=== PATIENT | female | born 1985 | race African-American/Black ===

== ENCOUNTER 2018-02-12 16:38 | Emergency (ER) | payer OTHER ==
[2018-02-12 17:26] LABS: URINE HCG POC HCG NEGATIVE (Negative)
[2018-02-12 17:26] LABS: BILIRUBIN,URINE NEGATIVE (NEG); CLARITY,URINE CLOUDY; COLOR,URINE YELLOW; GLUCOSE,URINE NEGATIVE (NEG); NITRITE,URINE NEGATIVE (NEG); PH,URINE 6.5; PROTEIN,URINE NEGATIVE (NEG-TRACE)
[2018-02-12 17:37] LABS: BACTERIA,URINE MANY /HPF (0-FEW); RBC,URINE 0 /HPF (0-2); SQUAMOUS EPITHELIAL CELL,UR MANY /LPF; WBC,URINE 0 /HPF (0-4)
[2018-02-12] MEDS: CYCLOBENZAPRINE 10 MG TABLET. PO (17:57)
[2018-02-12] MEDS: NAPROXEN 500 MG TABLET PO (17:57)
== END 2018-02-12 19:30 | disposition home or self-care (01) ==
LOC: ER 19:30
DX: S39.012A Strain of muscle, fascia and tendon of lower back, initial encounter (principal); S16.1XXA Strain of muscle, fascia and tendon at neck level, initial encounter; V43.62XA Car passenger injured in collision with other type car in traffic accident, initial encounter; Y93.89 Activity, other specified; Y92.488 Other paved roadways as the place of occurrence of the external cause; Y99.8 Other external cause status
CPT/HCPCS: 72100; 81001; 81025; 99285-25

== ENCOUNTER 2021-05-13 19:54 | Emergency (ER) | payer SELFPAY ==
[~2021-05-13] VITALS: Ht 170.2 cm; Wt 70.0 kg
[~2021-05-13 19:54] MED LIST: CYCL10TA2 PO; NAPR500T8 PO
[2021-05-13] MEDS ORDERED: IV NORMAL SALINE 1000ML BAG 1,000 ML IV ONE (20:15)
[2021-05-13 20:19] LABS: BASO # 0.1 x10^3/uL (0.0-0.2); BASO % 1 % (0-3); EOS % 0 % (0-3); HEMATOCRIT 44.2 % (36.0-47.0); HEMOGLOBIN 15.2 g/dL (12.0-15.5); LYMPH # 0.9 x10^3/uL (1.0-4.8); LYMPH % 8 % (24-48); MEAN CORPUSCULAR HEMOGLOBIN 32 pg (25-35); MEAN CORPUSCULAR HGB CONC 35 g/dL (31-37); MEAN CORPUSCULAR VOLUME 93 fL (79-100); MONO # 0.6 x10^3/uL (0.0-1.1); MONO % 5 % (0-9); NEUT # 10.5 x10^3/uL (1.8-7.7); NEUT % 87 % (31-73); PLATELET COUNT 372 x10^3/uL (140-400); RED BLOOD COUNT 4.77 x10^6/uL (3.50-5.40); RED CELL DISTRIBUTION WIDTH 12.9 % (11.5-14.5)
[2021-05-13 20:40] LABS: CALCIUM 9.1 mg/dL (8.5-10.1); CREATININE 0.9 mg/dL (0.6-1.0); GFR 86.2; POTASSIUM 3.8 mmol/L (3.5-5.1)
[2021-05-13] MEDS ORDERED: HALOPERIDOL LACTATE 5 MG/ML VIAL. IVP ONE ×2 (20:45)
[2021-05-13 20:46] LABS: ALBUMIN 4.4 g/dL (3.4-5.0); MAGNESIUM 2.1 mg/dL (1.8-2.4); TOTAL BILIRUBIN 0.3 mg/dL (0.2-1.0); TOTAL PROTEIN 8.8 g/dL (6.4-8.2)
--- NOTE | 2021-05-13 21:45 | PHYS DOC ---
Past Medical History Past Medical History: No Pertinent History Past Surgical History: No Surgical History Smoking Status: Never Smoker Alcohol Use: None Drug Use: None General Adult EDM: Chief Complaint: ABDOMINAL PAIN HPI: HPI: 36-year-old female with a history of everyday marijuana use presents complaining of nausea vomiting throughout the last 24 hours. She also admits to heavy alcohol use last night. Admits to abdominal soreness from vomiting. The patient denies diarrhea fever, chills, chest pain, shortness of breath,urinary symptoms, cough, recent trauma, or any other complaints. Does not take hormones/medications, no cancer treatments or surgery. Review of Systems: Review of Systems: ROS is otherwise negative except for what was mentioned in HPI Heart Score: C/O Chest Pain: No Current Medications: Current Medications Medications (Trade) Dose Ordered Sig/Rivka Start Time Stop Time Status Last Admin Dose Admin Haloperidol Lactate (Haldol Inj) 2.5 mg 1X ONCE 05/13/21 20:45 05/13/21 20:46 DC Sodium Chloride 1,000 ml @ 1,000 mls/hr 1X ONCE 05/13/21 20:15 05/13/21 21:14 DC 05/13/21 20:15 1,000 MLS/HR Allergies: Allergies: Allergies Coded Allergies Type Severity Reaction Last Updated Verified No Known Drug Allergies 02/12/18 No Physical Exam: PE: Constitutional: Moderate distress, non-toxic appearance. HENT: Atraumatic, bilateral external ears normal, nose normal. Eyes: PERRLA, EOMI, conjunctiva normal, no discharge. Neck: Normal range of motion, supple, no stridor. Cardiovascular: Heart rate regular rhythm. 2+ radial pulses Lungs & Thorax: No respiratory distress, symmetrical expansion. Bilateral breath sounds clear to auscultation Abdomen: Soft, no tenderness Skin: Warm, dry. Extremities: No tenderness, no cyanosis, ROM intact, no edema. Neurologic: Alert and oriented X 3, normal motor function, normal sensory function, no focal deficits noted. Non ataxic gait. GCS 15. Psychologic: Affect normal, judgment normal, mood normal. Current Patient Data: Labs: Laboratory Tests Test 05/13/21 20:00 05/13/21 21:45 05/13/21 22:07 White Blood Count 12.0 x10^3/uL (4.0-11.0) Red Blood Count 4.77 x10^6/uL (3.50-5.40) Hemoglobin 15.2 g/dL (12.0-15.5) Hematocrit 44.2 % (36.0-47.0) Mean Corpuscular Volume 93 fL (79-100) Mean Corpuscular Hemoglobin 32 pg (25-35) Mean Corpuscular Hemoglobin Concent 35 g/dL (31-37) Red Cell Distribution Width 12.9 % (11.5-14.5) Platelet Count 372 x10^3/uL (140-400) Neutrophils (%) (Auto) 87 % (31-73) Lymphocytes (%) (Auto) 8 % (24-48) Monocytes (%) (Auto) 5 % (0-9) Eosinophils (%) (Auto) 0 % (0-3) Basophils (%) (Auto) 1 % (0-3) Neutrophils # (Auto) 10.5 x10^3/uL (1.8-7.7) Lymphocytes # (Auto) 0.9 x10^3/uL (1.0-4.8) Monocytes # (Auto) 0.6 x10^3/uL (0.0-1.1) Eosinophils # (Auto) 0.0 x10^3/uL (0.0-0.7) Basophils # (Auto) 0.1 x10^3/uL (0.0-0.2) Segmented Neutrophils % 95 % (35-66) Lymphocytes % 4 % (24-48) Monocytes % 1 % (0-10) Platelet Estimate Adequate (ADEQUATE) Sodium Level 147 mmol/L (136-145) Potassium Level 3.8 mmol/L (3.5-5.1) Chloride Level 106 mmol/L (98-107) Carbon Dioxide Level 27 mmol/L (21-32) Anion Gap 14 (6-14) Blood Urea Nitrogen 10 mg/dL (7-20) Creatinine 0.9 mg/dL (0.6-1.0) Estimated GFR (Cockcroft-Gault) 86.2 BUN/Creatinine Ratio 11 (6-20) Glucose Level 121 mg/dL (70-99) Calcium Level 9.1 mg/dL (8.5-10.1) Magnesium Level 2.1 mg/dL (1.8-2.4) Total Bilirubin 0.3 mg/dL (0.2-1.0) Aspartate Amino Transf (AST/SGOT) 10 U/L (15-37) Alanine Aminotransferase (ALT/SGPT) 21 U/L (14-59) Alkaline Phosphatase 86 U/L (46-116) Total Protein 8.8 g/dL (6.4-8.2) Albumin 4.4 g/dL (3.4-5.0) Albumin/Globulin Ratio 1.0 (1.0-1.7) Lipase 79 U/L (73-393) Urine Collection Type Unknown Urine Color Yellow Urine Clarity Clear Urine pH 7.5 (<5.0-8.0) Urine Specific [place] >=1.030 (1.000-1.030) Urine Protein 100 mg/dL (NEG-TRACE) Urine Glucose (UA) Negative mg/dL (NEG) Urine Ketones (Stick) Negative mg/dL (NEG) Urine Blood Trace (NEG) Urine Nitrite Negative (NEG) Urine Bilirubin Negative (NEG) Urine Urobilinogen Dipstick 0.2 mg/dL (0.2 mg/dL) Urine Leukocyte Esterase Trace (NEG) Urine RBC 6-10 /HPF (0-2) Urine WBC 11-20 /HPF (0-4) Urine Squamous Epithelial Cells Mod /LPF Urine Bacteria Moderate /HPF (0-FEW) Urine Mucus Marked /LPF Bedside Urine HCG, Qualitative Hcg negative (Negative) Vital Signs: Vital Signs Date Time Temp Pulse Resp B/P (MAP) Pulse Ox O2 Delivery O2 Flow Rate FiO2 05/13/21 21:27 62 18 105/57 (73) 97 Room Air 05/13/21 20:00 97.9 97.9 Course & Med Decision Making: Course & Med Decision Making Patient felt much better after Haldol, likely cannabis hyperemesis syndrome. Will discharge with Keflex for UTI My Orders - MILAGROS AHMADI DO Procedure Category Date Status Time Haloperidol Lactate PHA 05/13/21 Complete Inj (Haldol Inj) 20:45 Cbc W Autodiff LAB 05/13/21 Complete 20:11 Comprehensive LAB 05/13/21 Complete Metabolic Panel 20:11 Lipase LAB 05/13/21 Complete 20:11 Magnesium LAB 05/13/21 Complete 20:11 Ua, Cult If Indicated LAB 05/13/21 Complete 20:11 Urine Test EKATERINA 05/13/21 In Process 20:11 Haloperidol Lactate PHA 05/13/21 Complete Inj (Haldol Inj) 20:45 Iv Normal Saline PHA 05/13/21 Complete 1000ml Bag (Iv Sodium 20:15 Manual Differential LAB 05/13/21 Complete 20:00 Drugs Of Abuse Ur LAB 05/13/21 In Process 21:15 Urine Culture TANIYA 05/13/21 In Process 23:06 Departure Departure Impression: Primary Impression: Cannabinoid hyperemesis syndrome Additional Impression: UTI (urinary tract infection) Disposition: HOME / SELF CARE / HOMELESS Condition: IMPROVED Referrals: NO PCP (PCP) Patient Instructions: Nausea and Vomiting, [id number] Additional Instructions: You were seen for a urinary tract infection. Please continue to take the antibiotics as prescribed. You should return to the ED if you develop worsening pain, fever, flank pain, inability to eat or drink, or any other new or concerning symptoms. You have been given a prescription for Keflex. This medicine is an antibiotic for Urinary Tract Infection. Please take as prescribed for the full course of the prescription. Do not stop taking the medicine early if you feel better, as this could risk building antibiotic resistance and may put you at risk for a more harmful infection later. The most common side effect of antibiotics include nausea, vomiting, diarrhea and rash. Please come to be evaluated if you develop any symptoms that are concerning to you. One major adverse effect of antibiotics is the development of a diarrheal illness called c. diff colitis, if you develop an excessive amount of diarrhea or are concerned about this please return to the ER or consult a physician. Scripts Cephalexin (CEPHALEXIN) 500 Mg Tablet 1 TAB PO BID for 7 Days, #14 TAB Prov: MILAGROS AHMADI DO 05/13/21 MILAGROS AHMADI DO May 13, 2021 21:45
[2021-05-13 21:57] LABS: % LYMPHS 4 % (24-48); % MONOS 1 % (0-10); % SEGS 95 % (35-66)
[2021-05-13 21:58] LABS: PLT ESTIMATE ADEQUATE (ADEQUATE)
[2021-05-13 22:18] LABS: BILIRUBIN,URINE NEGATIVE (NEG); CLARITY,URINE CLEAR; COLOR,URINE YELLOW; NITRITE,URINE NEGATIVE (NEG); PH,URINE 7.5 (<5.0-8.0); PROTEIN,URINE 100 mg/dL (NEG-TRACE); UROBILINOGEN,URINE 0.2 mg/dL (0.2 mg/dL)
[2021-05-13 22:51] LABS: BARBITURATES NEG (NEG); BENZODIAZEPINES NEG (NEG); CANNABINOIDS POS (NEG); COCAINE POS (NEG); METHADONE NEG (NEG); OPIATES NEG (NEG); PHENCYCLIDINE NEG (NEG)
[2021-05-13 23:05] LABS: BACTERIA,URINE MODERATE /HPF (0-FEW)
[2021-05-13] MEDS ORDERED: CEPH500T PO (23:21)
[2021-05-13 23:22] LABS: AMPHETAMINE/METHAMPHETAMINE NEG (NEG)
[2021-05-13 23:24] VITALS: BP 110/60
== END 2021-05-13 23:36 | disposition home or self-care (01) ==
LOC: ER 19:54
DX: F12.188 Cannabis abuse with other cannabis-induced disorder (principal); N39.0 Urinary tract infection, site not specified
CPT/HCPCS: 36415; 80053; 80307; 81001; 81025; 83690; 83735; 85007; 85025; 87086; 96361; 96374; 99283; J1630; J7030

== ENCOUNTER 2021-12-13 12:54 | Emergency (ER) | payer SELFPAY ==
[~2021-12-13] VITALS: Ht 170.2 cm; Wt 87.5 kg
[~2021-12-13 12:54] MED LIST changes: +CEPH500T PO; +CYCL10TA19 PO; -CYCL10TA2 PO
[2021-12-13 13:27] LABS: BACTERIA,URINE FEW /HPF (0-FEW); RBC,URINE 0 /HPF (0-2)
[2021-12-13 13:50] LABS: BASO % 1 % (0-3); EOS # 0.1 x10^3/uL (0.0-0.7); EOS % 1 % (0-3); HEMATOCRIT 38.3 % (36.0-47.0); HEMOGLOBIN 13.1 g/dL (12.0-15.5); LYMPH # 1.6 x10^3/uL (1.0-4.8); LYMPH % 25 % (24-48); MEAN CORPUSCULAR HEMOGLOBIN 31 pg (25-35); MEAN CORPUSCULAR HGB CONC 34 g/dL (31-37); MEAN CORPUSCULAR VOLUME 92 fL (79-100); MONO # 0.8 x10^3/uL (0.0-1.1); MONO % 13 % (0-9); NEUT % 61 % (31-73); PLATELET COUNT 347 x10^3/uL (140-400); RED BLOOD COUNT 4.16 x10^6/uL (3.50-5.40); RED CELL DISTRIBUTION WIDTH 13.5 % (11.5-14.5); WHITE BLOOD COUNT 6.5 x10^3/uL (4.0-11.0)
[2021-12-13 14:01] LABS: CALCIUM 8.8 mg/dL (8.5-10.1); CREATININE 0.7 mg/dL (0.6-1.0); GFR 115.2; POTASSIUM 3.8 mmol/L (3.5-5.1)
[2021-12-13 14:07] LABS: ALBUMIN 3.7 g/dL (3.4-5.0); TOTAL BILIRUBIN 0.6 mg/dL (0.2-1.0); TOTAL PROTEIN 7.5 g/dL (6.4-8.2)
[2021-12-13 15:40] VITALS: BP 126/56
--- NOTE | 2021-12-13 15:59 | RAD ---
US OB <14 WKS +TV History: vaginal bleeding Comparison: None. Technique: Sonographic examination of the pelvis was performed with transabdominal and transvaginal t echnique. Findings: The uterus is normal in size and echogenicity, measuring 9.9 x 5.8 x 6.1 cm. The uterus contains a single gestational sac with normal shape with average diameter 1.23 cm correspo nding to a gestational age of 6 weeks 0 days. A pole is not yet definitively seen. There is a normal-appearing yolk sac. cardiac activi ty was attempted to be measured however not definitely identified. There is no evidence of perigestational hemorrhage. The right ovary is normal in size and echogenicity, measuring 2.0 x 1.9 x 2.9 cm, inclusive of a 1.8 cm corpus luteum. The left ovary is normal in size and echogenicity, measuring 3.7 x 1.4 x 1.9 cm. There is no evidence of adnexal mass or free fluid. Impression: 1. No evidence of acute pelvic pathology. 2. Intrauterine gestational sac with yolk sac and mean gestational sac diameter corresponding to ges tational age of 6 weeks 0 days. A pole is not yet definitively seen. Recommend close clinical f ollow-up with repeat ultrasound in 7-14 days if indicated. Electronically signed by: Taran Thorpe MD (12/13/2021 3:56 PM) [id number]
--- NOTE | 2021-12-13 16:47 | PHYS DOC ---
Past Medical History Past Medical History: No Pertinent History Past Surgical History: No Surgical History Smoking Status: Never Smoker Alcohol Use: None Drug Use: None General Adult EDM: Chief Complaint: VAGINAL BLEEDING HPI: HPI: Patient is a 36-year-old female who presents to the emergency department complaining of vaginal bleeding ongoing since November 29. Patient reports her last menstrual cycle was October 24 of normal duration of flow, reports she started experiencing low pelvic cramping with vaginal bleeding on November 29, was seen at [facility] emergency department, stated they did an ultrasound and told her she was too early in her and recommended she follow-up with an PATIENT RESOURCE COORDINATOR. Patient states her beta hCG level at that time was 58. Patient states she had STI cultures drawn and were negative. Patient denies taking any medications at home. States this is her sixth , has 3 live children, reports her fourth ended in a miscarriage, her fifth she elected to abort. Patient denies increased urinary frequency, urinary pressure, a urinary burning, hematuria or other dysuria. Patient denies nausea, vomiting, diarrhea. Patient denies abdominal pain. Patient states she does have low intermittent abdominal cramping. Patient denies any abdominal cramping at this time. Patient reports her vaginal bleeding as a pink tinge on the toilet paper after she wipes post urination. Patient denies dizziness, denies syncopal or near syncopal episodes, denies diaphoresis. Patient denies rashes to her skin, denies rashes or lesions to her vagina, denies vaginal discharge. Patient denies other physical complaints or physical concerns. Review of Systems: Review of Systems: 14 body systems of review of systems have been reviewed. See HPI for pertinent positives and negative responses, otherwise all other systems are negative, nonpertinent or noncontributory. Constitutional: Negative except as outlined in HPI above. Skin: Negative except as outlined in HPI above. Eyes: Negative except as outlined in HPI above. HENT: Negative except as outlined in HPI above. Respiratory: Negative except as outlined in HPI above. Cardiovascular: Negative except as outlined in HPI above. GI: Negative except as outlined in HPI above. : Negative except as outlined in HPI above. Musculoskeletal: Negative except as outlined in HPI above. Integument: Negative except as outlined in HPI above. Neurologic: Negative except as outlined in HPI above. Endocrine: Negative except as outlined in HPI above. Lymphatic: Negative except as outlined in HPI above. Psychiatric: Negative except as outlined in HPI above. Heart Score: C/O Chest Pain: No Risk Factors: Risk Factors: DM, Current or recent (<one month) smoker, HTN, HLP, family history of CAD, obesity. Risk Scores: Score 0 - 3: 2.5% MACE over next 6 weeks - Discharge Home Score 4 - 6: 20.3% MACE over next 6 weeks - Admit for Clinical Observation Score 7 - 10: 72.7% MACE over next 6 weeks - Early Invasive Strategies Allergies: Allergies: Allergies Coded Allergies Type Severity Reaction Last Updated Verified No Known Drug Allergies 02/12/18 No Physical Exam: PE: Constitutional: Well developed, well nourished, no acute distress, non-toxic appearance. 36-year-old female in no apparent distress. HENT: Normocephalic, atraumatic. Eyes: Conjunctiva normal, no discharge. Neck: Normal range of motion. Cardiovascular: Distal cap refill less than 2 seconds, no cyanosis appreciated. Lungs & Thorax: Patient is in no respiratory distress, no adventitious lung sounds appreciated. Abdomen: Bowel sounds normal, soft, no tenderness, no masses, no pulsatile masses. No bruising or skin discoloration of the abdomen. Skin: Warm, dry, no erythema, no rash. Back: No tenderness, no CVA tenderness. Extremities: No tenderness, no cyanosis, no clubbing, ROM intact, no edema. Neurologic: Alert and oriented X 3, normal motor function, normal sensory function, no focal deficits noted. Psychologic: Affect normal, judgement normal, mood normal. : Pelvic examination performed with female ED nurse at bedside for traveling phlebotomist, external vaginal structures are without rashes or lesions, no vaginal discharge appreciated externally, speculum exam reveals pink nonerythematous vaginal chavira and cervix, the cervical os is closed, no bleeding appreciated in the vaginal vault. Patient tolerated well. Current Patient Data: Labs: Laboratory Tests Test 12/13/21 13:06 12/13/21 13:13 12/13/21 13:40 Urine Collection Type Unknown Urine Color (Auto) Yellow Urine Turbidity Clear Urine pH (Auto) 6.5 (<5.0-8.0) Urine Specific [place] 1.027 (1.000-1.030) Urine Protein (Auto) Negative mg/dL (Negative) Urine Glucose (Auto)(UA) Negative mg/dL (Negative) Urine Ketones (Auto) Trace mg/dL (Negative) Urine Blood (Auto) Negative (Negative) Urine Nitrite Negative (Negative) Urine Bilirubin (Auto) Negative (Negative) Urine Urobilinogen (Auto) Normal mg/dL (Normal) Urine Leukocyte Esterase (Auto) Negative (Negative) Urine RBC 0 /HPF (0-2) Urine WBC 1-4 /HPF (0-4) Urine Squamous Epithelial Cells Mod /LPF Urine Bacteria Few /HPF (0-FEW) Urine Mucus Mod /LPF POC Urine HCG, Qualitative Hcg positive (Negative) White Blood Count 6.5 x10^3/uL (4.0-11.0) Red Blood Count 4.16 x10^6/uL (3.50-5.40) Hemoglobin 13.1 g/dL (12.0-15.5) Hematocrit 38.3 % (36.0-47.0) Mean Corpuscular Volume 92 fL (79-100) Mean Corpuscular Hemoglobin 31 pg (25-35) Mean Corpuscular Hemoglobin Concent 34 g/dL (31-37) Red Cell Distribution Width 13.5 % (11.5-14.5) Platelet Count 347 x10^3/uL (140-400) Neutrophils (%) (Auto) 61 % (31-73) Lymphocytes (%) (Auto) 25 % (24-48) Monocytes (%) (Auto) 13 % (0-9) H Eosinophils (%) (Auto) 1 % (0-3) Basophils (%) (Auto) 1 % (0-3) Neutrophils # (Auto) 4.0 x10^3/uL (1.8-7.7) Lymphocytes # (Auto) 1.6 x10^3/uL (1.0-4.8) Monocytes # (Auto) 0.8 x10^3/uL (0.0-1.1) Eosinophils # (Auto) 0.1 x10^3/uL (0.0-0.7) Basophils # (Auto) 0.0 x10^3/uL (0.0-0.2) Maternal Serum HCG Beta Subunit 73747 mIU/mL (0-5) H Sodium Level 135 mmol/L (136-145) L Potassium Level 3.8 mmol/L (3.5-5.1) Chloride Level 100 mmol/L (98-107) Carbon Dioxide Level 28 mmol/L (21-32) Anion Gap 7 (6-14) Blood Urea Nitrogen 7 mg/dL (7-20) Creatinine 0.7 mg/dL (0.6-1.0) Estimated GFR (Cockcroft-Gault) 115.2 BUN/Creatinine Ratio 10 (6-20) Glucose Level 98 mg/dL (70-99) Calcium Level 8.8 mg/dL (8.5-10.1) Total Bilirubin 0.6 mg/dL (0.2-1.0) Aspartate Amino Transferase (AST) 14 U/L (15-37) L Alanine Aminotransferase (ALT) 18 U/L (14-59) Alkaline Phosphatase 64 U/L (46-116) Total Protein 7.5 g/dL (6.4-8.2) Albumin 3.7 g/dL (3.4-5.0) Albumin/Globulin Ratio 1.0 (1.0-1.7) Laboratory Tests 12/13/21 13:40 Laboratory Tests 12/13/21 13:40 Vital Signs: Vital Signs Date Time Temp Pulse Resp B/P (MAP) Pulse Ox O2 Delivery O2 Flow Rate FiO2 12/13/21 13:05 97.9 71 18 140/68 (92) 100 Room Air 97.9 EKG: EKG: [] Radiology/Procedures: Radiology/Procedures: REASON: vaginal bleeding PROCEDURE: OB <14 WKS W/TV US OB <14 WKS +TV History: vaginal bleeding Comparison: None. Technique: Sonographic examination of the pelvis was performed with transabdominal and transvaginal technique. Findings: The uterus is normal in size and echogenicity, measuring 9.9 x 5.8 x 6.1 cm. The uterus contains a single gestational sac with normal shape with average diameter 1.23 cm corresponding to a gestational age of 6 weeks 0 days. A pole is not yet definitively seen. There is a normal-appearing yolk sac. cardiac activity was attempted to be measured however not definitely identified. There is no evidence of perigestational hemorrhage. The right ovary is normal in size and echogenicity, measuring 2.0 x 1.9 x 2.9 cm, inclusive of a 1.8 cm corpus luteum. The left ovary is normal in size and echogenicity, measuring 3.7 x 1.4 x 1.9 cm. There is no evidence of adnexal mass or free fluid. Impression: 1. No evidence of acute pelvic pathology. 2. Intrauterine gestational sac with yolk sac and mean gestational sac diameter corresponding to gestational age of 6 weeks 0 days. A pole is not yet definitively seen. Recommend close clinical follow-up with repeat ultrasound in 7-14 days if indicated. Electronically signed by: Taran Thorpe MD (12/13/2021 3:56 PM) [id number] Course & Med Decision Making: Course & Med Decision Making Pertinent Labs and Imaging studies reviewed. (See chart for details) 36-year-old female, vital signs reviewed, presents emerged from concerning vaginal bleeding in . Patient's physical examination is unremarkable. Patient states she had a complete OB work-up 2 weeks ago. Will order urine test, urinalysis assay, beta hCG quant, CBC, CMP, OB less than 14 weeks ultrasound, pelvic examination, ABO and Rh type. Pelvic exam is unremarkable, there is no blood in the vaginal vault, the cervical os is closed. With patient reporting having STI cultures drawn 2 weeks ago, and physical presentation nonconcerning for STIs, there is no vaginal discharge, the vaginal structures are pink and healthy appearing, STI cultures were not obtained. At 1600, upon reexamination of the patient, patient is not in room, IV is in bed, gone is in bed, all patient clothing and belongings are not in the room. Patient considered eloped from emergency department. Dragdiana Disclaimer: Yoan Disclaimer: This electronic medical record was generated, in whole or in part, using a voice recognition dictation system. Departure Departure Impression: Primary Impression: Eloped from emergency department Disposition: 07 LEFT AWOL/ELOPED Referrals: NO PCP (PCP) HOLLAND MENDOZA APRN Dec 13, 2021 16:47
== END 2021-12-13 16:20 | disposition left against medical advice (07) ==
LOC: ER 12:54
DX: O46.91 Antepartum hemorrhage, unspecified, first trimester (principal); Z3A.01 Less than 8 weeks gestation of pregnancy
CPT/HCPCS: 36415; 76801; 76817; 80053; 81001; 81025; 84702; 85025; 86900; 86901; 99284-25